=== PATIENT | male | born 1960 | race Caucasian/White ===

== ENCOUNTER 2017-04-24 16:59 | Emergency (ER) | payer MEDICARE ==
[~2017-04-24] VITALS: Ht 170.2 cm; Wt 103.6 kg
[2017-04-24 17:00] VITALS: BP 188/83; PULSE 85; RESP 20; RESP 22; TEMP 103.1; O2SAT 89
[2017-04-24 17:33] VITALS: BP 167/79; PULSE 80; RESP 20; TEMP 102.6; O2SAT 96
[2017-04-24] MEDS ORDERED: AZITHROMYCIN INJ 500 MG in SODIUM CHLOR 0.9% 250 ML INJ 250 ML IV STA (17:34)
[2017-04-24] MEDS ORDERED: PIPERACIL-TAZO 4.5 GM PREMIX 100 ML IV STA (17:34)
[2017-04-24] MEDS ORDERED: SODIUM CHLOR 0.9% 1000 ML INJ 1,000 ML IV ONE (17:45)
--- NOTE | 2017-04-24 17:51 | RADRPT ---
EXAM DATE/TIME: 04/24/2017 17:40 [place] COMPARISON: No previous studies available for comparison. INDICATIONS : Short of breath. MEDICAL HISTORY : None. SURGICAL HISTORY : None. ENCOUNTER: Initial ACUITY: 2 days PAIN SCORE: 0/10 LOCATION: Bilateral chest FINDINGS: The cardiac silhouette is enlarged in transverse diameter. The lungs are free of acute parenchymal op acity. No effusions are identified. Osseous structures are intact. CONCLUSION: Cardiomegaly. No acute cardiopulmonary disease. Jayy Merida MD on April 24, 2017 at 17:49 Board Certified Radiologist. This report was verified electronically.
--- NOTE | 2017-04-24 17:52 | PD ---
HPI Chief Complaint: Fever Time Seen by Provider: 17:34 Travel History International Travel<30 days: No Contact w/Intl Traveler<30days: No Traveled to known affect area: No History of Present Illness HPI 54-year-old male patient with history of COPD, CA, presents to the ER today because he states that he has not been feeling well for several days, coughing, shortness of breath, general weakness, fatigue, flulike symptoms. He denies any vomiting, chest pains, or other symptoms. He has been running fevers, states that he has had sepsis in the past and it feels like his prior episode of sepsis. Modifying Factors: None Associated Signs & Symptoms: Fatigue, coughing, shortness of breath, flulike symptoms Risk Factors: Sepsis history, COPD PFSH Past Medical History Cardiovascular Problems: Yes (CAD; [place]) Diabetes: Yes Patient Takes Glucophage: Yes (METFORMIN ) Hypertension: Yes Respiratory: Yes (COPD) Influenza Vaccination: Yes Social History Alcohol Use: No Tobacco Use: No Substance Use: No Allergies-Medications (Allergen,Severity, Reaction): Coded Allergies: codeine (Verified Allergy, Intermediate, 04/24/17) Review of Systems Except as stated in HPI: all other systems reviewed are Neg Physical Exam Narrative GENERAL: Well-developed elderly white male patient currently in mild distress. Awake and went 3. SKIN: Focused skin assessment warm/dry. HEAD: Atraumatic. Normocephalic. EYES: Pupils equal and round. No scleral icterus. No injection or drainage. ENT: No nasal bleeding or discharge. Mucous membranes pink and moist. NECK: Trachea midline. No JVD. CARDIOVASCULAR: Regular rate and rhythm. No murmur appreciated. RESPIRATORY: No accessory muscle use. Mild wheezing throughout. Breath sounds equal bilaterally. GASTROINTESTINAL: Abdomen soft, non-tender, nondistended. Hepatic and splenic margins not palpable. MUSCULOSKELETAL: No obvious deformities. No clubbing. No cyanosis. No edema. NEUROLOGICAL: Awake and alert. No obvious cranial nerve deficits. Motor grossly within normal limits. Normal speech. PSYCHIATRIC: Appropriate mood and affect; insight and judgment normal. Data Data Last Documented VS Vital Signs Date Time Temp Pulse Resp B/P (MAP) Pulse Ox O2 Delivery O2 Flow Rate FiO2 04/24/17 19:45 96 Nasal Cannula 3.00 04/24/17 19:25 85 36 151/68 (95) 04/24/17 17:33 102.6 Orders Orders Sepsis Workup Initiated (04/24/17 ) Electrocardiogram (04/24/17 17:26) Complete Blood Count With Diff (04/24/17 17:) Comprehensive Metabolic Panel (04/24/17 17:26) Lactic Acid Sepsis Protocol (04/24/17 17:26) Influenzae A/B Antigen (04/24/17:) Blood Culture (04/24/17:) Chest, Single Ap (04/24/17:) Blood Glucose (04/24/17:) Ecg Monitoring (04/24/17:) Iv Access Insert/Monitor (04/24/17:) Oximetry (04/24/17:) Oxygen Administration (04/24/17:) Piperacil-Tazo 4.5 Gm Premix (Zosyn 4.5 (04/24/17 17:34) Azithromycin Inj (Zithromax Inj) (04/24/17 17:34) Sodium Chlor 0.9% 1000 Ml Inj (Ns 1000 M (04/24/17 17:45) Methylprednisolone So Succ Inj (Solumedr (04/24/17 18:00) Albuterol-Ipratropium Neb (Duoneb Neb) (04/24/17 18:00) Acetaminophen (Tylenol) (04/24/17 19:45) Albuterol-Ipratropium Neb (Duoneb Neb) (04/24/17 19:45) Labs Laboratory Tests Test 04/24/17 17:45 White Blood Count 10.7 TH/MM3 Red Blood Count 4.73 MIL/MM3 Hemoglobin 15.0 GM/DL Hematocrit 44.2 % Mean Corpuscular Volume 93.4 FL Mean Corpuscular Hemoglobin 31.6 PG Mean Corpuscular Hemoglobin Concent 33.8 % Red Cell Distribution Width 13.7 % Platelet Count 224 TH/MM3 Mean Platelet Volume 9.3 FL Neutrophils (%) (Auto) 87.3 % Lymphocytes (%) (Auto) 5.3 % Monocytes (%) (Auto) 6.7 % Eosinophils (%) (Auto) 0.5 % Basophils (%) (Auto) 0.2 % Neutrophils # (Auto) 9.3 TH/MM3 Lymphocytes # (Auto) 0.6 TH/MM3 Monocytes # (Auto) 0.7 TH/MM3 Eosinophils # (Auto) 0.1 TH/MM3 Basophils # (Auto) 0.0 TH/MM3 CBC Comment DIFF FINAL Differential Comment Blood Urea Nitrogen 10 MG/DL Creatinine 1.19 MG/DL Random Glucose 130 MG/DL Total Protein 8.3 GM/DL Albumin 4.3 GM/DL Calcium Level 9.2 MG/DL Alkaline Phosphatase 98 U/L Aspartate Amino Transf (AST/SGOT) 17 U/L Alanine Aminotransferase (ALT/SGPT) 21 U/L Total Bilirubin 0.4 MG/DL Sodium Level 134 MEQ/L Potassium Level 3.8 MEQ/L Chloride Level 97 MEQ/L Carbon Dioxide Level 29.5 MEQ/L Anion Gap 8 MEQ/L Estimat Glomerular Filtration Rate 63 ML/MIN Lactic Acid Level 1.1 mmol/L [facility] Medical Decision Making Medical Screen Exam Complete: Yes Emergency Medical Condition: Yes Medical Record Reviewed: Yes Interpretation(s) Laboratory Tests Test 04/24/17 17:45 Neutrophils (%) (Auto) 87.3 % (16.0-70.0) Lymphocytes (%) (Auto) 5.3 % (9.0-44.0) Neutrophils # (Auto) 9.3 TH/MM3 (1.8-7.7) Lymphocytes # (Auto) 0.6 TH/MM3 (1.0-4.8) Random Glucose 130 MG/DL (74-106) Total Protein 8.3 GM/DL (6.4-8.2) Sodium Level 134 MEQ/L (136-145) Chloride Level 97 MEQ/L (98-107) Estimat Glomerular Filtration Rate 63 ML/MIN (>89) Last 24 hours Impressions Chest X-Ray 04/24/17 1726 Signed Impressions: Service Date/Time: Monday, April 24, 2017 17:40 - CONCLUSION: Cardiomegaly. No acute cardiopulmonary disease. Jayy Merida MD Differential Diagnosis Sepsis versus influenza versus pneumonia versus dehydration versus metabolic issues Narrative Course Chest x-ray shows cardiomegaly without obvious signs of pneumonia or other acute pulmonary processes. Lab work was otherwise unremarkable. He is febrile the ER and Tylenol was given. Solu-Medrol and nebulizer was given for wheezing , likely underlying bronchitis. He may have an underlying viral pneumonitis causing bronchitis. However, when patient's nurse went to give the nebulizer, the patient had refused, stating he wanted to drink water first. On my reevaluation at 7:30 PM, he was still wheezing and doing poorly and additional nebulizers were ordered for him. Physician Communication Physician Communication Case is signed out to Dr. Johnston at 7:50 PM awaiting recheck after nebulizer. If doing well, can be released. Diagnosis Primary Impression: Fever Additional Impression: Wheezing Condition: Stable Yasmany Sunshine MD Apr 24, 2017 17:52
[2017-04-24] MEDS ORDERED: methylPREDNISolone SOD SUCC 125 MG/2 ML VIAL IV PUSH ONE (18:00)
[2017-04-24] MEDS: RESP: ALBUTEROL 2.5 MG/IPRATROPIUM 0.5 MG NEB (SCH) INH ×3 (18:00→19:47)
[2017-04-24 18:13] LABS: AUTOMATED NEUTROPHIL # 9.3 TH/MM3 (1.8-7.7); BASOPHIL % 0.2 % (0.0-2.0); EOSINOPHIL # 0.1 TH/MM3 (0-0.4); EOSINOPHIL % 0.5 % (0.0-4.0); HEMATOCRIT 44.2 % (39.0-51.0); HEMO FLAGS DIFF FINAL; LYMPH % 5.3 % (9.0-44.0); LYMPHOCYTE # 0.6 TH/MM3 (1.0-4.8); MEAN CELL VOLUME 93.4 FL (80.0-100.0); MEAN CORPUSCULAR HEMOGLOBIN 31.6 PG (27.0-34.0); MEAN CORPUSCULAR HGB CONC 33.8 % (32.0-36.0); MONO % 6.7 % (0.0-8.0); NEUT % 87.3 % (16.0-70.0); PLATELET COUNT 224 TH/MM3 (150-450); RED BLOOD COUNT 4.73 MIL/MM3 (4.50-5.90); RED CELL DISTRIBUTION WIDTH 13.7 % (11.6-17.2); WHITE BLOOD COUNT 10.7 TH/MM3 (4.0-11.0)
[2017-04-24 18:54] VITALS: O2SAT 100
[2017-04-24 19:09] LABS: ALT (GPT) 21 U/L (12-78); ANION GAP 8 MEQ/L (5-15); AST (GOT) 17 U/L (15-37); BICARBONATE 29.5 MEQ/L (21.0-32.0); BLOOD UREA NITROGEN 10 MG/DL (7-18); CHLORIDE 97 MEQ/L (98-107); GLOMERULAR FILTRATION RATE 63 ML/MIN (>89); POTASSIUM 3.8 MEQ/L (3.5-5.1); SODIUM (NA) 134 MEQ/L (136-145)
[2017-04-24 19:12] LABS: ALKALINE PHOSPHATASE 98 U/L (45-117); TOTAL BILIRUBIN ADULT 0.4 MG/DL (0.2-1.0)
[2017-04-24 19:25] VITALS: BP 151/68; PULSE 85; RESP 36; O2SAT 96
[2017-04-24 19:45] VITALS: O2SAT 96
[2017-04-24] MEDS ORDERED: ACETAMINOPHEN 500 MG CPLT PO ONE (19:45)
[2017-04-24 20:30] VITALS: BP 127/80; PULSE 80; RESP 24; O2SAT 92
[2017-04-24] MEDS: RESP: ALBUTEROL 2.5 MG/3 ML NEB (SCH) INH (20:50)
[2017-04-24 21:01] LABS: BLOOD, URINE TRACE (NEG); COMMENT (UR) CULT NOT INDICATED; CULTURE IF INDICATED CULT NOT INDICATED; GLUCOSE,URINE NEG (NEG); KETONE, URINE TRACE mg/dL (NEG); MUCUS URINE FEW /lpf (OCC); NITRITE,URINE NEG (NEG); PH, URINE 6.5 (5.0-8.5); URINE COLOR YELLOW (YELLW/STRAW)
[2017-04-24] MEDS ORDERED: PRED20 PO (21:10)
[2017-04-24] MEDS ORDERED: VENTAER INH (21:10)
--- NOTE | 2017-04-24 21:11 | PD ---
Physical Exam Date Seen by Provider: Apr 24, 2017 Time Seen by Provider: 21:08 Narrative 57-year-old male came to the emergency room for fever. Patient was seen by the previous ER physician. Please refer to her notes for details on history and physical. Patient did have some respiratory symptoms including cough and difficulty breathing. He was noticed to be wheezing. Blood test results came back unremarkable. Chest x-ray was negative for any pneumonia. Patient was given nebulizer and signed out to me to be reevaluated. I went and reassessed once the nebulizers were done and patient continued to be wheezing a little bit. I ordered 2 more nebulizers. At this point patient wants to go home. I' m okay discharging him home with prescription for inhaler and steroid. In my opinion he probably has viral illness. Data Data Last Documented VS Orders Orders Sepsis Workup Initiated (04/24/17 ) Electrocardiogram (04/24/17 17:26) Complete Blood Count With Diff (04/24/17 17:26) Comprehensive Metabolic Panel (04/24/17 17:26) Lactic Acid Sepsis Protocol (04/24/17 17:26) Influenzae A/B Antigen (04/24/17 17:26) Blood Culture (04/24/17 17:26) Chest, Single Ap (04/24/17 17:26) Blood Glucose (04/24/17 17:26) Ecg Monitoring (04/24/17 17:26) Iv Access Insert/Monitor (04/24/17 17:26) Oximetry (04/24/17 17:26) Oxygen Administration (04/24/17 17:26) Piperacil-Tazo 4.5 Gm Premix (Zosyn 4.5 (04/24/17 17:34) Azithromycin Inj (Zithromax Inj) (04/24/17 17:34) Sodium Chlor 0.9% 1000 Ml Inj (Ns 1000 M (04/24/17 17:45) Methylprednisolone So Succ Inj (Solumedr (04/24/17 18:00) Albuterol-Ipratropium Neb (Duoneb Neb) (04/24/17 18:00) Acetaminophen (Tylenol) (04/24/17 19:45) Albuterol-Ipratropium Neb (Duoneb Neb) (04/24/17 19:45) Urinalysis - C+S If Indicated (04/24/17 20:02) Albuterol Neb (Albuterol Neb) (04/24/17 20:30) Ed Discharge Order (04/24/17 21:12) Labs Laboratory Tests Test 04/24/17 17:45 04/24/17 20:17 White Blood Count 10.7 TH/MM3 Red Blood Count 4.73 MIL/MM3 Hemoglobin 15.0 GM/DL Hematocrit 44.2 % Mean Corpuscular Volume 93.4 FL Mean Corpuscular Hemoglobin 31.6 PG Mean Corpuscular Hemoglobin Concent 33.8 % Red Cell Distribution Width 13.7 % Platelet Count 224 TH/MM3 Mean Platelet Volume 9.3 FL Neutrophils (%) (Auto) 87.3 % Lymphocytes (%) (Auto) 5.3 % Monocytes (%) (Auto) 6.7 % Eosinophils (%) (Auto) 0.5 % Basophils (%) (Auto) 0.2 % Neutrophils # (Auto) 9.3 TH/MM3 Lymphocytes # (Auto) 0.6 TH/MM3 Monocytes # (Auto) 0.7 TH/MM3 Eosinophils # (Auto) 0.1 TH/MM3 Basophils # (Auto) 0.0 TH/MM3 CBC Comment DIFF FINAL Differential Comment Blood Urea Nitrogen 10 MG/DL Creatinine 1.19 MG/DL Random Glucose 130 MG/DL Total Protein 8.3 GM/DL Albumin 4.3 GM/DL Calcium Level 9.2 MG/DL Alkaline Phosphatase 98 U/L Aspartate Amino Transf (AST/SGOT) 17 U/L Alanine Aminotransferase (ALT/SGPT) 21 U/L Total Bilirubin 0.4 MG/DL Sodium Level 134 MEQ/L Potassium Level 3.8 MEQ/L Chloride Level 97 MEQ/L Carbon Dioxide Level 29.5 MEQ/L Anion Gap 8 MEQ/L Estimat Glomerular Filtration Rate 63 ML/MIN Lactic Acid Level 1.1 mmol/L Urine Color YELLOW Urine Turbidity CLEAR Urine pH 6.5 Urine Specific [place] 1.015 Urine Protein TRACE mg/dL Urine Glucose (UA) NEG mg/dL Urine Ketones TRACE mg/dL Urine Occult Blood TRACE Urine Nitrite NEG Urine Bilirubin NEG Urine Urobilinogen LESS THAN 2.0 MG/DL Urine Leukocyte Esterase NEG Urine RBC 2 /hpf Urine Mucus FEW /lpf Microscopic Urinalysis Comment CULT NOT INDICATED MDM Supervised Visit with [facility]IS: No Diagnosis Primary Impression: Fever Qualified Codes: R50.9 - Fever, unspecified Additional Impression: Wheezing Referrals: Primary Care Physician Additional Instruction: Please return to the ER if the condition worsens or any other new concerns. Take Tylenol/Motrin/ibuprofen for your fever. Use the inhaler 2 puffs every 4- 6 hours still symptoms resolve. Take the medication as per the prescription direction. Follow-up with your primary care. Med/Other Pt SpecificInfo: Prescription(s) given Scripts Albuterol 18 GM Inh (Ventolin Hfa 18 GM Inh) 90 Mcg/Act Aer 2 PUFF INH Q4-6H Y for SHORTNESS OF BREATH, #1 INHALER 0 Refills Prov: Marycruz Johnston MD 04/24/17 Prednisone (Prednisone) 20 Mg Tab 20 MG PO BID for 5 Days, #10 TAB 0 Refills Prov: Marycruz Johnston MD 04/24/17 Disposition: 01 DISCHARGE HOME Condition: Stable Marycruz Johnston MD Apr 24, 2017 21:11
--- NOTE | 2017-04-25 15:49 | EKG ---
Date Performed: 04/24/2017 Time Performed: 18:20:44 PTAGE: 57 years EKG: Sinus rhythm NONSPECIFIC ST & T-WAVE ABNORMALITY BORDERLINE ECG INTERPRETATION BASED ON A DEFAULT AGE OF 38 YEARS NO PREVIOUS TRACING DOCTOR: Goldy Johnson Interpretating Date/Time 04/25/2017 15:48:26
== END 2017-04-24 21:17 | disposition home or self-care (01) ==
LOC: NEPE 16:59
DX: J44.9 Chronic obstructive pulmonary disease, unspecified (principal); E11.9 Type 2 diabetes mellitus without complications; Z79.84 Long term (current) use of oral hypoglycemic drugs
CPT/HCPCS: 71010; 80053; 81001; 83605; 85025; 87040; 87804; 93005; 94640; 94664; 96365; 96375; 99285; J0456; J2543; J2930; J7030; J7050; J7613